=== PATIENT | male | born 1970 | race Caucasian/White ===

== ENCOUNTER → 2019-02-26 | Day surgery (SDC) | payer OTHER ==
[2019-02-24 11:10] LABS: BASOPHILS % 0.4 % (0.0-1.0); EOSINOPHILS # (AUTO) 0.1 (0.0-0.4); EOSINOPHILS % 1.4 % (0.0-6.0); HEMOGLOBIN 15.9 g/dL (14.0-18.0); LYMPHOCYTES # (AUTO) 2.9 (1.0-3.2); LYMPHOCYTES % 36.1 % (18.0-39.1); MEAN CORPUSCULAR HEMOGLOBIN 32.5 pg (28-32); MEAN CORPUSCULAR HGB CONC 35.3 g/dL (31-35); MONOCYTES # (AUTO) 0.7 (0.2-0.8); MONOCYTES % 8.1 % (4.4-11.3); NEUTROPHILS # (AUTO) 4.3 (2.1-6.9); NEUTROPHILS % 53.6 % (38.7-80.0); PLATELET COUNT 239 x10e3/uL (140-360); RED BLOOD COUNT 4.89 x10e6/uL (4.3-5.7); RED CELL DISTRIBUTION WIDTH 11.8 % (11.7-14.4)
[2019-02-24 11:25] LABS: ALANINE AMINOTRANSFERASE 44 IU/L (0-55); ALBUMIN 4.3 g/dL (3.5-5.0); ALBUMIN/GLOBULIN RATIO 1.5 (0.8-2.0); ALKALINE PHOSPHATASE 69 IU/L (40-150); ANION GAP 11.7 mmol/L (8-16); BLOOD UREA NITROGEN 11 mg/dL (7-26); BUN/CREATININE RATIO 14 (6-25); CARBON DIOXIDE 27 mmol/L (22-29); CHLORIDE 105 mmol/L (98-107); CREATININE, SERUM 0.78 mg/dL (0.72-1.25); EST GLOMERULAR FILTRATION RATE > 60 ML/MIN (60-); GLUCOSE 103 mg/dL (74-118); POTASSIUM 4.7 mmol/L (3.5-5.1); SODIUM 139 mmol/L (136-145)
[2019-02-24 11:56] LABS: INR 0.92; PROTHROMBIN TIME 12.9 seconds (11.9-14.5)
[~2019-02-26] VITALS: Ht 165.1 cm; Wt 91.6 kg
[2019-02-26] VITALS (8 sets, daily range): BP systolic 111–138; BP diastolic 70–84
[~2019-02-26] MED LIST: FENTANYL CITRATE/PF 100MCG/2 ML INJ ONE; HEPARIN SOD (PORCINE) 1000 UNIT/ML 30ML ONE; HEPARIN SOD/SOD CHLORIDE 2,000 ML ONE; IOPAMIDOL 370 MG/ML 200 ML INFUS..BTL INJ ONE; LIDOCAINE HCL 2% LOCAL 20 ML VIAL ONE; LISINOPRIL10 MG PO; MIDAZOLAM HCL 2 MG/2 ML VIAL ONE; NITROGLYCERIN/D5W 200 MCG/ML 250 ML ONE; VERAPAMIL HCL 2.5 MG/ML 2 ML VIAL ONE
--- NOTE | 2019-02-26 08:30 | NUR ---
0830am Received pt to room #10,bedside report received from Moe BOCANEGRA. Alert oriented and appropriate, PERRLA, respirations even and unlabored to room air. Pulses x4 extremities equal and strong. Pedal pulses PT/DP X4 Cap fill brisk < 3 sec. Ok to decrease band at 0850 dc home approx. 930am. Skin warm and dry integrity appears W/D. IV 20g to lefthand presents healthy w/o s/s of infiltration or complaint. Abdomen soft and supple. pt offered toileting, denies need to urinate or defecate. No personal affects with patient. Family at bedside. Pt and family verbalizes understanding of POC. Currently w/o complaint of pain or need. ds/rn
--- NOTE | 2019-02-26 08:50 | NUR ---
0850a Addendum: 02/26/19 at 1946 by Alannah Romo RN 0850am RADIAL Compression removal: Initial Cuff volume 12 cc 0850a -2cc Removed No hematoma/bleeding noted with normal neurovascular function. 0900a -5cc Removed No hematoma/ bleeding noted with normal neurovascular function. 0915 -5cc Removed No hematoma/bleeding noted with normal neurovascular function. Air removal completed. Stasis achieved sterile 2x2,Tegaderm, Coban dressing No hematoma, bleeding noted with normal neurovascular function. Wrist splint in place. Pt instructed on POC. Ds/Rn
--- NOTE | 2019-02-26 14:14 | Operative Report ---
DATE OF PROCEDURE: SURGEON: Nik An DO PROCEDURES PERFORMED: 1. Conscious sedation, 26 minutes. 2. Selective coronary angiography x2. 3. Left heart catheterization. PREPROCEDURE DIAGNOSIS: Severe mitral regurgitation. POSTPROCEDURE DIAGNOSIS: Severe mitral regurgitation. ESTIMATED BLOOD LOSS: Less than 10 mL. SPECIMENS REMOVED: None. PROCEDURE IN DETAIL: After informed consent was obtained, the patient was brought to the cardiac catheterization laboratory in a fasting and nonsedated state. Bilateral groins were prepped and draped in usual sterile fashion. Right wrist was prepped and draped in the usual sterile fashion. A 2% lidocaine was instilled over the right wrist for local anesthesia. Using a micropuncture needle, the right radial artery was accessed via modified Seldinger technique and a 5-Nepali slender sheath was placed. Next, diagnostic selective coronary angiography and left heart catheterization was performed using a 5-Nepali Jp catheter. The patient tolerated the procedure well with no immediate complications and transferred back to his room in stable condition. PROCEDURAL FINDINGS: 1. The ostial left main has a 10% stenosis, however, could be spasm due to the catheter. There is no obstructive disease present here. 2. Left anterior descending coronary artery is patent without significant disease. 3. There is a small ramus intermedius with no significant disease. 4. Left circumflex coronary provides one large obtuse marginal vessel with no significant disease. 5. Right coronary artery is a large dominant vessel with a large posterior lateral and posterior descending coronary artery. There is no significant coronary artery disease present in the coronary system. 6. Left ventricular end-diastolic pressure is 15 to 18 mmHg with no aortic valve gradient present upon pullback. IMPRESSION: Severe mitral regurgitation. RECOMMENDATIONS: The patient may proceed with mitral valve repair without bypass needed. Nik An DO BM/MODL /[id number]
--- NOTE | 2019-02-26 19:00 | NUR ---
1900Pt meets DC criteria. Rt radial assessed for s/s of complication and presence of hematoma. Skin warm, dry, no discolor, and pulses present. IV removed from left hand Distal tip appears intact. VS WNL. Pt denies pain, sob, or need at this time. Family at Review of discharge paperwork and follow up instructions. verbalized understanding. Pt to wheelchair and transported to front of hospital. Transferred to private vehicle under own strength w/o incident with DC paperwork in hand. - ds/rn
--- OUTSIDE RECORDS SUMMARY | 2019-03-06 11:16 | XMS REPORT ---
Author Author [facility] Address Unknown Phone Unavailable Care Team Providers Care Property Master Name Role Phone Unavailable Unavailable Problems This patient has no known problems. Allergies, Adverse Reactions, Alerts This patient has no known allergies or adverse reactions. Medications This patient has no known medications. Encounters Start Date/Time End Date/Time Encounter Type Admission Type Attending Clinicians Care Facility Care Department Encounter ID 2019-02-06 14:17:00 2019-02-06 14:17:00 Outpatient [facility] CAR [id number]
== END | disposition home or self-care (01) ==
LOC: CATH LAB 06:27
PROVIDERS: ATTEND Internal Medicine Cardiovascular Disease
DX: I34.0 Nonrheumatic mitral (valve) insufficiency (principal); I20.8 Other forms of angina pectoris; Z01.812 Encounter for preprocedural laboratory examination
CPT/HCPCS: 36415; 80053; 85025; 85610; 93458; C1769; C1887; J1644; J2001; J2250; J3010; Q9967; 99152